=== PATIENT | female | born 1940 | race African-American/Black ===

== ENCOUNTER 2017-09-13 16:43 | Emergency (ER) | payer MEDICARE, MEDICAID ==
[~2017-09-13] VITALS: Ht 167.6 cm; Wt 105.0 kg
[~2017-09-13 16:43] MED LIST: ASPI-785 PO; HYDR1TAB4 PO; LOSA50TA3 PO; METH4TAB PO; MONT10TA21 PO
[2017-09-13 18:11] LABS: BASOPHILS % 0.3 % (0.0-2.0); EOSINOPHILS % 2.9 % (0.0-5.0); HEMATOCRIT. 36.3 % (36.0-48.0); HEMOGLOBIN. 12.4 g/dL (12.0-16.0); MEAN CORPUSCULAR HEMOGLOBIN 30.9 pg (28.0-32.0); MEAN CORPUSCULAR VOLUME 90.2 fL (81.0-99.0); MONOCYTES % 8.4 % (2.0-8.0); NEUTROPHILS % 66.4 % (40.0-76.0); PLATELET 257 x1000/uL (130-400); RED BLOOD CELL COUNT 4.03 mill/uL (4.2-5.4); RED CELL DISTRIBUTION WIDTH 13.8 % (11.6-14.6)
[2017-09-13 18:15] LABS: CHLORIDE 108 mEq/L (98-107)
[2017-09-13 18:19] LABS: INR 1.1; PARTIAL THROMBOPLASTIN TIME 28.1 sec (23.4-31.0)
[2017-09-13 21:14] VITALS: BP 135/81
== END 2017-09-13 21:21 | disposition home or self-care (01) ==
LOC: ER 18:06
DX: R07.81 Pleurodynia (principal); E88.09 Other disorders of plasma-protein metabolism, not elsewhere classified; I10 Essential (primary) hypertension; Z79.82 Long term (current) use of aspirin; Z85.3 Personal history of malignant neoplasm of breast; Z85.038 Personal history of other malignant neoplasm of large intestine
CPT/HCPCS: 36415; 71045; 80053; 83690; 84484; 85025; 85610; 85730; 93005; 99285